=== PATIENT | female | born 1970 | race Caucasian/White ===

== ENCOUNTER 2020-07-31 08:02 | Emergency (ER) | payer OTHER ==
[~2020-07-31] VITALS: Ht 167.6 cm; Wt 72.6 kg
--- NOTE | 2020-07-31 08:02 | NUR ---
Patient BIBA ALS, transferred to bed 11. RN evaluating patient at bedside.
[2020-07-31 08:03] VITALS: BP 122/82
--- NOTE | 2020-07-31 08:23 | NUR ---
Dr. Clobert is evaluating the patient at bedside.
[2020-07-31] MEDS ORDERED: ASPIRIN 81 MG TAB.CHEW PO ONE (08:30)
[2020-07-31] MEDS ORDERED: LORazepam 1 MG TAB PO ONE (08:40)
[2020-07-31 08:43] LABS: BASOPHILS # (AUTO) 0.1 K/uL (0.00-0.22); BASOPHILS % (AUTO) 1.4 % (0.0-2.0); EOSINOPHILS % (AUTO) 1.1 % (0.0-4.0); HEMATOCRIT 37.8 % (36-48); HEMOGLOBIN 12.7 g/dL (12.0-16.0); LYMPHOCYTES # (AUTO) 1.1 K/uL (2.5-16.5); LYMPHOCYTES % (AUTO) 26.1 % (20.5-51.1); MEAN CORPUSCULAR HEMOGLOBIN 31 pg (27-31); MEAN CORPUSCULAR HGB CONC 34 g/dL (33-37); MEAN CORPUSCULAR VOLUME 91.1 fL (80-94); MONOCYTES # (AUTO) 0.5 K/uL (0.8-1.0); MONOCYTES % (AUTO) 12.1 % (1.7-9.3); NEUTROPHILS # (AUTO) 2.5 K/uL (1.8-7.7); NEUTROPHILS % (AUTO) 59.3 % (42.2-75.2); PLATELET COUNT (AUTO) 349 K/uL (140-450); RED BLOOD CELL COUNT(AUTO) 4.15 MIL/uL (4.20-5.40); RED CELL DISTRIBUTION WIDTH 14.1 % (11.6-13.7); WHITE BLOOD COUNT (AUTO) 4.3 K/uL (4.8-10.8)
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
[2020-07-31 09:49] LABS: ALBUMIN 3.8 g/dL (3.4-5.0); ANION GAP 15.9 (8-16); CARBON DIOXIDE 23.8 mmol/L (21-32); CREATININE 0.7 mg/dL (0.6-1.3); POTASSIUM 3.7 mmol/L (3.5-5.1); TOTAL BILIRUBIN 0.7 mg/dL (0.0-1.0)
--- NOTE | 2020-07-31 10:39 | NUR ---
PATIENT PACING IN HALLWAY ASKING WHERE HER DC PAPERWORK IS. DR. LY WAITING FOR CHEMISTRY LAB RESULTS. PT MADE AWARE AND STATES SHE CANNOT WAIT THAT SHE HAS AN APPOINTMENT SHE HAS TO BE AT. DR. LY AWARE AND WILL PREPARE HER DC PAPERWORK.
[2020-07-31 10:44] VITALS: BP 125/80
--- NOTE | 2020-07-31 10:44 | NUR ---
Patient discharged with v/s stable. Written and verbal after care instructions given and explained. Patient alert, oriented and verbalized understanding of instructions. Ambulatory with steady gait. All questions addressed prior to discharge. ID band removed. Patient advised to follow up with PMD. Rx of Xanax 0.5mg given. Patient educated on indication of medication including possible reaction and side effects. Opportunity to ask questions provided and answered.
== END 2020-07-31 10:44 | disposition home or self-care (01) ==
LOC: MED 08:02
DX: R07.9 Chest pain, unspecified (principal); R00.2 Palpitations; R06.02 Shortness of breath; Z98.890 Other specified postprocedural states; Z90.710 Acquired absence of both cervix and uterus
CPT/HCPCS: 36415; 71045; 80053; 84484; 85025; 93005; 99285

== ENCOUNTER 2020-08-22 14:06 | Emergency (ER) | payer OTHER ==
[~2020-08-22] VITALS: Ht 160 cm; Wt 66.7 kg
[2020-08-22 14:14] VITALS: BP 136/53
[2020-08-22] MEDS ORDERED: ACETAMINOPHEN 325 MG TAB PO ONE (15:10)
[2020-08-22] MEDS ORDERED: ACETAMINOPHEN EXTRA STRENGTH 500 MG TAB ONE (15:13)
[2020-08-22 16:07] VITALS: BP 132/56
--- NOTE | 2020-08-22 16:10 | NUR ---
PT DEMONSTRATED PROPER USE OF CRUTCHES
== END 2020-08-22 16:09 | disposition home or self-care (01) ==
LOC: MED 14:06
DX: M79.672 Pain in left foot (principal); J45.909 Unspecified asthma, uncomplicated; E11.9 Type 2 diabetes mellitus without complications; Z98.890 Other specified postprocedural states
CPT/HCPCS: 73630; 99283

== ENCOUNTER 2020-09-12 17:25 | Emergency (ER) | payer OTHER ==
[~2020-09-12] VITALS: Ht 160 cm; Wt 66.7 kg
[2020-09-12 17:29] VITALS: BP 121/60
--- NOTE | 2020-09-12 17:30 | NUR ---
Patient ambulated to bed 2 with steady/even gait.
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
--- NOTE | 2020-09-12 17:47 | NUR ---
Dr. Lynn is evaluating patient at bedside.
[2020-09-12] MEDS ORDERED: KETOROLAC 30 MG/ML VIAL IM ONE (17:55)
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
--- NOTE | 2020-09-12 18:19 | NUR ---
Ultrasound at bedside.
--- NOTE | 2020-09-12 18:23 | NUR ---
Patient presents with both eyes open in semi-fowlers position. Respirations even/unlabored. hop worker in place. Bed locked in lowest position, side rails x 1, call light in reach.
--- NOTE | 2020-09-12 19:12 | NUR ---
Report and transfer of care given to COBY Dennis.
--- NOTE | 2020-09-12 19:12 | NUR ---
RECIVED REPORT FROM ESTHELA TENORIO, CONTINUATION OF CARE.
[2020-09-12] MEDS ORDERED: NAPR-54 PO (20:23)
[2020-09-12 20:40] VITALS: BP 102/60
--- NOTE | 2020-09-12 20:40 | NUR ---
Patient discharged with v/s stable. Written and verbal after care instructions given and explained. Patient alert, oriented and verbalized understanding of instructions. Ambulatory with steady gait. All questions addressed prior to discharge. ID band removed. Patient advised to follow up with PMD. Rx of NYPROXEN given. Patient educated on indication of medication including possible reaction and side effects. Opportunity to ask questions provided and answered.
== END 2020-09-12 20:40 | disposition home or self-care (01) ==
LOC: MED 17:25
DX: S20.02XA Contusion of left breast, initial encounter (principal); S20.01XA Contusion of right breast, initial encounter; J45.909 Unspecified asthma, uncomplicated; E11.9 Type 2 diabetes mellitus without complications; Z79.899 Other long term (current) drug therapy; Y08.89XA Assault by other specified means, initial encounter; Y93.89 Activity, other specified; Y92.89 Other specified places as the place of occurrence of the external cause; Y99.8 Other external cause status
CPT/HCPCS: 71045; 76641; 96372; 99284; J1885

== ENCOUNTER 2021-01-06 12:55 | Emergency (ER) | payer OTHER ==
[~2021-01-06] VITALS: Ht 156.2 cm; Wt 66.8 kg
[~2021-01-06 12:55] MED LIST: NAPR-54 PO
[2021-01-06 13:12] VITALS: BP 105/71
--- NOTE | 2021-01-06 13:18 | NUR ---
pt ambulated to bed 12.
[2021-01-06 13:44] LABS: BASOPHILS # (AUTO) 0.1 K/uL (0.00-0.22); BASOPHILS % (AUTO) 0.9 % (0.0-2.0); EOSINOPHILS # (AUTO) 0.2 K/uL (0-0.4); EOSINOPHILS % (AUTO) 2.8 % (0.0-4.0); HEMATOCRIT 36.8 % (36-48); HEMOGLOBIN 12.3 g/dL (12.0-16.0); LYMPHOCYTES # (AUTO) 1.6 K/uL (2.5-16.5); LYMPHOCYTES % (AUTO) 18.7 % (20.5-51.1); MEAN CORPUSCULAR HEMOGLOBIN 31 pg (27-31); MEAN CORPUSCULAR HGB CONC 34 g/dL (33-37); MEAN CORPUSCULAR VOLUME 92.1 fL (80-94); MONOCYTES # (AUTO) 0.8 K/uL (0.8-1.0); MONOCYTES % (AUTO) 8.8 % (1.7-9.3); NEUTROPHILS # (AUTO) 5.9 K/uL (1.8-7.7); NEUTROPHILS % (AUTO) 68.8 % (42.2-75.2); PLATELET COUNT (AUTO) 347 K/uL (140-450); RED BLOOD CELL COUNT(AUTO) 3.99 MIL/uL (4.20-5.40); RED CELL DISTRIBUTION WIDTH 14.9 % (11.6-13.7); WHITE BLOOD COUNT (AUTO) 8.5 K/uL (4.8-10.8)
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
[2021-01-06] MEDS ORDERED: HYDROcodone/APAP 7.5/325 MG 1 TAB PO ONE (13:50)
[2021-01-06 13:59] LABS: ALBUMIN 3.7 g/dL (3.4-5.0); ANION GAP 10.8 (8-16); CREATININE 0.6 mg/dL (0.6-1.3); POTASSIUM 3.8 mmol/L (3.5-5.1); TOTAL BILIRUBIN 0.3 mg/dL (0.0-1.0)
[2021-01-06 14:29] LABS: APPEARANCE,URINE CLEAR (CLEAR); BILIRUBIN,URINE NEGATIVE (NEGATIVE); BLOOD, URINE NEGATIVE (NEGATIVE); COLOR,URINE YELLOW (YELLOW); LEUKOCYTE ESTERASE ,URINE NEGATIVE (NEGATIVE); NITRITE, URINE NEGATIVE (NEGATIVE); UGLUCOSE NEGATIVE (NEGATIVE)
[2021-01-06] MEDS ORDERED: ACET-8386 PO (15:35)
[2021-01-06] MEDS ORDERED: IBUP-2213 PO (15:35)
[2021-01-06] MEDS ORDERED: AMOX-1000 PO (15:35)
[2021-01-06 15:48] VITALS: BP 102/70
--- NOTE | 2021-01-06 15:49 | NUR ---
Patient discharged with v/s stable. Written and verbal after care instructions about wound care given and explained. Patient alert, oriented and verbalized understanding of instructions. Ambulatory with steady gait. All questions addressed prior to discharge. ID band removed. Patient advised to follow up with PMD. Rx of norco, augmentin, ibuprofen given. Patient educated on indication of medication including possible reaction and side effects. Opportunity to ask questions provided and answered.
== END 2021-01-06 15:49 | disposition home or self-care (01) ==
LOC: MED 12:55
DX: G89.18 Other acute postprocedural pain (principal); J45.909 Unspecified asthma, uncomplicated; E11.9 Type 2 diabetes mellitus without complications
CPT/HCPCS: 36415; 80053; 81003; 83690; 85025; 99284

== ENCOUNTER 2021-02-18 08:23 | Emergency (ER) | payer OTHER ==
[~2021-02-18] VITALS: Ht 165.1 cm; Wt 63.5 kg
[~2021-02-18 08:23] MED LIST changes: +ACET-8386 PO; +AMOX-1000 PO; +IBUP-2213 PO
[2021-02-18] MEDS ORDERED: KETOROLAC 60 MG/2 ML VIAL IM ONE ×2 (08:50→10:11)
[2021-02-18 09:24] LABS: BASOPHILS % (AUTO) 0.4 % (0.0-2.0); EOSINOPHILS % (AUTO) 0.3 % (0.0-4.0); HEMATOCRIT 39.5 % (36-48); HEMOGLOBIN 13.3 g/dL (12.0-16.0); LYMPHOCYTES # (AUTO) 0.9 K/uL (2.5-16.5); LYMPHOCYTES % (AUTO) 8.4 % (20.5-51.1); MEAN CORPUSCULAR HEMOGLOBIN 31 pg (27-31); MEAN CORPUSCULAR HGB CONC 34 g/dL (33-37); MEAN CORPUSCULAR VOLUME 90.9 fL (80-94); MONOCYTES # (AUTO) 0.9 K/uL (0.8-1.0); NEUTROPHILS # (AUTO) 9.3 K/uL (1.8-7.7); NEUTROPHILS % (AUTO) 82.9 % (42.2-75.2); PLATELET COUNT (AUTO) 228 K/uL (140-450); RED BLOOD CELL COUNT(AUTO) 4.34 MIL/uL (4.20-5.40); RED CELL DISTRIBUTION WIDTH 13.7 % (11.6-13.7); WHITE BLOOD COUNT (AUTO) 11.2 K/uL (4.8-10.8)
[2021-02-18 09:40] LABS: ALBUMIN 4.1 g/dL (3.4-5.0); CARBON DIOXIDE 26.8 mmol/L (21-32); CREATININE 0.6 mg/dL (0.6-1.3); POTASSIUM 3.8 mmol/L (3.5-5.1); TOTAL BILIRUBIN 0.4 mg/dL (0.0-1.0)
[2021-02-18 10:51] LABS: APPEARANCE,URINE CLOUDY (CLEAR); BILIRUBIN,URINE 1+ (NEGATIVE); BLOOD, URINE 3+ (NEGATIVE); COLOR,URINE RED (YELLOW); LEUKOCYTE ESTERASE ,URINE 3+ (NEGATIVE); NITRITE, URINE NEGATIVE (NEGATIVE); PH,URINE 8.5 (5.0-9.0); UGLUCOSE NEGATIVE (NEGATIVE)
[2021-02-18 11:16] LABS: RBC,URINE TOO NUMEROUS TO COUN /HPF (0-5)
[2021-02-18] MEDS ORDERED: cefTRIAXone 1,000 MG in LIDOCAINE MPF 1% 2.1 ML IM ONE (11:35)
--- NOTE | 2021-02-18 12:04 | NUR ---
Pt room call x1. No answer
[2021-02-18] MEDS ORDERED: CEPH-588 PO (12:28)
--- NOTE | 2021-02-18 12:30 | NUR ---
ROOM CALLX 2. NO ANSWER.
--- NOTE | 2021-02-18 12:45 | NUR ---
ROOM CALLX 3. NO ANSWER.
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
== END 2021-02-18 12:45 | disposition left against medical advice (07) ==
LOC: MED 08:23
DX: R31.9 Hematuria, unspecified (principal); N39.0 Urinary tract infection, site not specified; J45.909 Unspecified asthma, uncomplicated; E11.9 Type 2 diabetes mellitus without complications; Z79.899 Other long term (current) drug therapy; Z90.710 Acquired absence of both cervix and uterus; Z98.890 Other specified postprocedural states
CPT/HCPCS: 36415; 74176; 80053; 81001; 81025; 83690; 85025; 87086; 96372; 99284; J1885

== ENCOUNTER 2021-03-22 01:13 | Emergency (ER) | payer OTHER ==
[~2021-03-22] VITALS: Ht 165.1 cm; Wt 65.8 kg
[~2021-03-22 01:13] MED LIST changes: +CEPH-588 PO
[2021-03-22 01:30] VITALS: BP 106/65
--- NOTE | 2021-03-22 01:33 | NUR ---
TO LOBBY A/W BED AMBULATORY
[2021-03-22] MEDS ORDERED: methylPREDNISolone SS 125 MG in WATER STERILE 2 ML IM ONE (03:00)
[2021-03-22] MEDS ORDERED: ACETAMINOPHEN 325 MG TAB PO ONE (03:00)
[2021-03-22] MEDS ORDERED: WATER STERILE 10 ML MC ONE (03:10)
[2021-03-22] MEDS ORDERED: methylPREDNISolone SS 125 MG/2 ML VIAL ONE (03:11)
[2021-03-22] MEDS ORDERED: EPIN1KIT31 IM (03:39)
[2021-03-22] MEDS ORDERED: PRED20TA5 PO (03:39)
[2021-03-22] MEDS ORDERED: DIPH25TA53 PO (03:39)
[2021-03-22] MEDS ORDERED: FAMO-90 PO (03:39)
[2021-03-22 04:03] VITALS: BP 106/65
--- NOTE | 2021-03-22 04:03 | NUR ---
Patient discharged with v/s stable. Written and verbal after care instructions given and explained. Patient verbalized understanding. Ambulatory with steady gait. All questions addressed prior to discharge. Advised to follow up with PMD.
== END 2021-03-22 04:03 | disposition home or self-care (01) ==
LOC: MED 01:13
DX: T63.441A Toxic effect of venom of bees, accidental (unintentional), initial encounter (principal); J45.909 Unspecified asthma, uncomplicated; E11.9 Type 2 diabetes mellitus without complications; Z79.899 Other long term (current) drug therapy
CPT/HCPCS: 96372; 99283; J2930; Q0163

== ENCOUNTER 2021-03-28 23:05 | Emergency (ER) | payer OTHER ==
[~2021-03-28 23:05] MED LIST changes: +DIPH25TA53 PO; +EPIN1KIT31 IM; +FAMO-90 PO; +PRED20TA5 PO
--- NOTE | 2021-03-28 23:10 | NUR ---
PATIENT CALL TO TRIAGE, NO RESPONSE PATIENT LEFT WITHOUT BEING SEEN BY DR. ALVAREZ. NO FURTHER CARE PROVIDED FOR PATIENT.
--- NOTE | 2021-03-28 23:20 | NUR ---
CALLED FOR THE SECOND TIME, NO RESPONSE
--- NOTE | 2021-03-28 23:30 | NUR ---
CALLED FOR THE THIRD TIME, NO RESPONSE
== END 2021-03-28 23:10 | disposition left against medical advice (07) ==
LOC: MED 23:05
DX: Z53.21 Procedure and treatment not carried out due to patient leaving prior to being seen by health care provider (principal)

== ENCOUNTER 2021-05-05 05:21 | Emergency (ER) | payer OTHER ==
[~2021-05-05] VITALS: Ht 165.1 cm; Wt 65.8 kg
[2021-05-05 05:28] VITALS: BP 104/73
--- NOTE | 2021-05-05 05:32 | NUR ---
TO BED AMBULATORY
[2021-05-05 05:35] VITALS: BP 104/73
[2021-05-05] MEDS ORDERED: PYR100 PO (05:44)
[2021-05-05] MEDS ORDERED: IBUP-2213 PO (05:44)
[2021-05-05] MEDS ORDERED: ACET-10509 PO (05:44)
[2021-05-05] MEDS ORDERED: NITR100C7 PO (05:44)
--- NOTE | 2021-05-05 05:49 | NUR ---
Patient discharged with v/s stable. Written and verbal after care instructions given and explained. Patient alert, oriented and verbalized understanding of instructions. Ambulatory with steady gait. All questions addressed prior to discharge. ID band removed. Patient advised to follow up with PMD. Rx of TYLENOL, MOTRIN, PYRIDUM, AND MACROBID given. Patient educated on indication of medication including possible reaction and side effects. Opportunity to ask questions provided and answered.
== END 2021-05-05 05:49 | disposition home or self-care (01) ==
LOC: MED 05:21
DX: N39.0 Urinary tract infection, site not specified (principal); N30.90 Cystitis, unspecified without hematuria; J45.909 Unspecified asthma, uncomplicated; E11.9 Type 2 diabetes mellitus without complications; Z79.1 Long term (current) use of non-steroidal anti-inflammatories (NSAID); Z79.2 Long term (current) use of antibiotics; Z79.891 Long term (current) use of opiate analgesic; Z79.899 Other long term (current) drug therapy
CPT/HCPCS: 81002; 87086; 99283

== ENCOUNTER 2021-06-12 19:18 | Emergency (ER) | payer OTHER ==
[~2021-06-12] VITALS: Ht 165.1 cm; Wt 62.6 kg
[~2021-06-12 19:18] MED LIST changes: +ACET-10509 PO; +NITR100C7 PO; +PYR100 PO
[2021-06-12 19:45] VITALS: BP 130/59
--- NOTE | 2021-06-12 20:30 | NUR ---
RECEIVED IN BED 6 WITH C/O EXCESSIVE ALCOHOL INTAKE, IS VOMITING AND HAS ABDOMIKNAL PAIN.
--- NOTE | 2021-06-12 20:30 | NUR ---
PT TAKEN TO BED 6
--- NOTE | 2021-06-12 20:37 | NUR ---
dr person at bedside for exam
[2021-06-12] MEDS ORDERED: DICYCLOMINE HCL LIQUID 20 MG, ALUMINUM HYD/MAG/SIMETHICONE 30 ML, LIDOCAINE VISCOUS 2% ... PO ONE ×3 (21:40)
[2021-06-12] MEDS ORDERED: ONDANSETRON 4 MG ODT PO ONE (21:40)
[2021-06-12] MEDS ORDERED: ALUMINUM HYD/MAG/SIMETHICONE 30 ML UDC ONE (21:51)
[2021-06-12] MEDS ORDERED: DICYCLOMINE HCL LIQUID 10 MG/5 ML UDC ONE (21:51)
--- NOTE | 2021-06-12 22:30 | NUR ---
DR. ROB AT BEDSIDE FOR EXAM
[2021-06-12 23:08] LABS: BASOPHILS % (AUTO) 0.5 % (0.0-2.0); EOSINOPHILS % (AUTO) 0.2 % (0.0-4.0); HEMATOCRIT 36.5 % (36-48); HEMOGLOBIN 12.4 g/dL (12.0-16.0); LYMPHOCYTES # (AUTO) 1.1 K/uL (2.5-16.5); LYMPHOCYTES % (AUTO) 14.5 % (20.5-51.1); MEAN CORPUSCULAR HEMOGLOBIN 30 pg (27-31); MEAN CORPUSCULAR HGB CONC 34 g/dL (33-37); MEAN CORPUSCULAR VOLUME 89.2 fL (80-94); MONOCYTES # (AUTO) 0.4 K/uL (0.8-1.0); MONOCYTES % (AUTO) 5.2 % (1.7-9.3); NEUTROPHILS # (AUTO) 5.8 K/uL (1.8-7.7); NEUTROPHILS % (AUTO) 79.6 % (42.2-75.2); PLATELET COUNT (AUTO) 239 K/uL (140-450); RED BLOOD CELL COUNT(AUTO) 4.09 MIL/uL (4.20-5.40); RED CELL DISTRIBUTION WIDTH 14.3 % (11.6-13.7); WHITE BLOOD COUNT (AUTO) 7.3 K/uL (4.8-10.8)
[2021-06-12 23:29] LABS: ALBUMIN 3.8 g/dL (3.4-5.0); ANION GAP 13.7 (8-16); CARBON DIOXIDE 27.2 mmol/L (21-32); CREATININE 0.6 mg/dL (0.6-1.3); POTASSIUM 3.9 mmol/L (3.5-5.1); TOTAL BILIRUBIN 0.2 mg/dL (0.0-1.0)
--- NOTE | 2021-06-12 23:30 | NUR ---
MOVED TO BED 8 VIA [facility]
[2021-06-12] MEDS ORDERED: ONDA-188 SL (23:45)
[2021-06-12] MEDS ORDERED: FAMO-90 PO (23:45)
[2021-06-13 01:30] VITALS: BP 128/64
--- NOTE | 2021-06-13 01:30 | NUR ---
Patient discharged with v/s stable. Written and verbal after care instructions given and explained. Patient alert, oriented and verbalized understanding of instructions. Ambulatory with steady gait. All questions addressed prior to discharge. ID band removed. Patient advised to follow up with PMD. Rx of PRILOSEC given. Patient educated on indication of medication including possible reaction and side effects. Opportunity to ask questions provided and answered.
== END 2021-06-13 01:30 | disposition home or self-care (01) ==
LOC: MED 19:18
DX: K29.70 Gastritis, unspecified, without bleeding (principal); F10.129 Alcohol abuse with intoxication, unspecified; R11.2 Nausea with vomiting, unspecified; J45.909 Unspecified asthma, uncomplicated; E11.9 Type 2 diabetes mellitus without complications; K21.9 Gastro-esophageal reflux disease without esophagitis; Z79.899 Other long term (current) drug therapy
CPT/HCPCS: 36415; 80053; 83690; 85025; 99283; G0482; Q0162

== ENCOUNTER 2021-10-31 05:40 | Emergency (ER) | payer OTHER ==
[~2021-10-31] VITALS: Ht 165.1 cm; Wt 67.1 kg
[~2021-10-31 05:40] MED LIST changes: +ONDA-188 SL
[2021-10-31 05:44] VITALS: BP 102/67
--- NOTE | 2021-10-31 06:02 | NUR ---
PT TAKEN TO BED 4
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
--- NOTE | 2021-10-31 06:06 | NUR ---
Dr. Denton examining patient.
--- NOTE | 2021-10-31 06:18 | NUR ---
Pelvic exam performed by Dr. Denton with COBY De Leon at bedside for entire examination. Patient tolerated procedure well. Patient assisted to position of comfort after examination.
[2021-10-31] MEDS ORDERED: KETOROLAC 60 MG/2 ML VIAL IM ONE (06:20)
--- NOTE | 2021-10-31 06:33 | NUR ---
Urine sample collected and sent to lab.
[2021-10-31] MEDS ORDERED: IBUP-2213 PO (06:57)
[2021-10-31 07:02] VITALS: BP 102/67
[2021-10-31 07:10] LABS: BILIRUBIN,URINE NEGATIVE (NEGATIVE); BLOOD, URINE NEGATIVE (NEGATIVE); LEUKOCYTE ESTERASE ,URINE NEGATIVE (NEGATIVE); NITRITE, URINE NEGATIVE (NEGATIVE); PH,URINE 6.5 (5.0-9.0); UGLUCOSE NEGATIVE (NEGATIVE)
[2021-10-31 07:31] LABS: APPEARANCE,URINE CLEAR (CLEAR); COLOR,URINE YELLOW (YELLOW)
== END 2021-10-31 07:02 | disposition home or self-care (01) ==
LOC: MED 05:40
DX: R10.30 Lower abdominal pain, unspecified (principal); R30.0 Dysuria; N89.8 Other specified noninflammatory disorders of vagina; Z79.899 Other long term (current) drug therapy; Z98.890 Other specified postprocedural states
CPT/HCPCS: 81003; 81025; 87070; 87210; 96372; 99283; J1885

== ENCOUNTER 2021-12-20 09:32 | Emergency (ER) | payer OTHER ==
[~2021-12-20] VITALS: Ht 165.1 cm; Wt 66.7 kg
[2021-12-20 09:33] VITALS: BP 107/71
--- NOTE | 2021-12-20 09:40 | NUR ---
PT WALKED WITH STEADY GAIT TO BED 7
--- NOTE | 2021-12-20 09:40 | NUR ---
PT AMBULATED TO BED 07.
--- NOTE | 2021-12-20 09:48 | NUR ---
PT GETTING CHANGED INTO GOWN. PELVIC SET UP DONE
--- NOTE | 2021-12-20 10:09 | NUR ---
DR BUTTERFIELD AT BEDSIDE
--- NOTE | 2021-12-20 10:17 | NUR ---
PELVIC EXAM DONE WITH DR BUTTERFIELD. ROBY FERNANDEZ AT BEDSIDE. WET MOUNT AND VAG CULTURE OBTAINED SENT TO LAB
[2021-12-20] MEDS ORDERED: KETOROLAC 30 MG/ML VIAL IM ONE (10:20)
[2021-12-20 10:24] LABS: APPEARANCE,URINE CLEAR (CLEAR); BILIRUBIN,URINE NEGATIVE (NEGATIVE); BLOOD, URINE NEGATIVE (NEGATIVE); COLOR,URINE YELLOW (YELLOW); LEUKOCYTE ESTERASE ,URINE NEGATIVE (NEGATIVE); NITRITE, URINE NEGATIVE (NEGATIVE); PH,URINE 6.5 (5.0-9.0); UGLUCOSE NEGATIVE (NEGATIVE)
--- NOTE | 2021-12-20 10:44 | NUR ---
PT TO XRAY
--- NOTE | 2021-12-20 11:24 | NUR ---
PENDING RESULTS ON XRAY.
--- NOTE | 2021-12-20 11:26 | NUR ---
ULTRASOUND AT BEDSIDE
[2021-12-20] MEDS ORDERED: NAPR-54 PO (12:44)
[2021-12-20] MEDS ORDERED: ACET-8386 PO (12:44)
[2021-12-20 12:51] VITALS: BP 107/71
--- NOTE | 2021-12-20 12:51 | NUR ---
Patient discharged with v/s stable. Written and verbal after care instructions given and explained. Patient alert, oriented and verbalized understanding of instructions. Ambulatory with steady gait. All questions addressed prior to discharge. ID band removed. Patient advised to follow up with PMD. Rx of HYDROCODONE NAPROXEN given. Patient educated on indication of medication including possible reaction and side effects. Opportunity to ask questions provided and answered.
--- NOTE | 2021-12-20 12:52 | NUR ---
Chart checked and completed. The patient's care was reviewed and supervised by Amy Craft RN.
== END 2021-12-20 12:51 | disposition home or self-care (01) ==
LOC: MED 09:32
DX: N89.8 Other specified noninflammatory disorders of vagina (principal); R10.2 Pelvic and perineal pain; Z90.710 Acquired absence of both cervix and uterus; Z79.899 Other long term (current) drug therapy; Z79.891 Long term (current) use of opiate analgesic; Z79.1 Long term (current) use of non-steroidal anti-inflammatories (NSAID); Z79.2 Long term (current) use of antibiotics
CPT/HCPCS: 73502; 76856; 81003; 81025; 87070; 87210; 87491; 93976; 96372; 99285; J1885; Q0092